=== PATIENT | male | born 1970 | race Caucasian/White ===

== ENCOUNTER 2016-05-29 15:54 | Emergency (ER) | payer SELFPAY ==
[~2016-05-29] VITALS: Ht 175.3 cm; Wt 90.0 kg
[2016-05-29 15:58] VITALS: BP 116/79; PULSE 84; RESP 16; TEMP 97.6; O2SAT 99
--- NOTE | 2016-05-29 16:36 | PD ---
HPI Chief Complaint: Back/ Neck Pain or Injury Time Seen by Provider: 16:36 Travel History International Travel<30 days: No Contact w/Intl Traveler<30days: No Traveled to known affect area: No History of Present Illness HPI 45-year-old male presents to the ED for evaluation of 3 day history of low back pain, radiating to the left buttock and down the left leg to the knee. Patient endorses spasming and shooting quality to the pain. He also endorses weakness of the left leg. He denies numbness or tingling, fever, chills, acute injury. He denies saddle anesthesia or urinary or fecal incontinence. No treatment attempted at home. He endorses chronic limp secondary to previous distant surgery. PFSH Past Medical History Hx Anticoagulant Therapy: No Diabetes: No Diminished Hearing: No Tetanus Vaccination: < 5 Years Influenza Vaccination: Yes Past Surgical History Other Surgery: Yes (BACK) Social History Alcohol Use: Yes (LIQUOR, OCCASIONALLY) Tobacco Use: Yes (1/2 PPD) Substance Use: No Allergies-Medications (Allergen,Severity, Reaction): Coded Allergies: No Known Allergies (Unverified , 05/29/16) Reported Meds & Prescriptions Reported Meds & Active Scripts Active Flexeril (Cyclobenzaprine HCl) 10 Mg Tab 10 Mg PO TID Ibuprofen 800 Mg Tab 800 Mg PO Q8H Review of Systems Except as stated in HPI: all other systems reviewed are Neg Physical Exam Narrative GENERAL: Well-nourished, well-developed white male in no acute distress. SKIN: Focused skin assessment warm/dry. HEAD: Normocephalic. EYES: No scleral icterus. No injection or drainage. NECK: Supple, trachea midline. No JVD or lymphadenopathy. CARDIOVASCULAR: Regular rate and rhythm without murmurs, gallops, or rubs. RESPIRATORY: Breath sounds equal bilaterally. No accessory muscle use. GASTROINTESTINAL: Abdomen soft, non-tender, nondistended. MUSCULOSKELETAL: No cyanosis, or edema. Straight leg raise positive on the left. 5/5 strength of dorsiflexion, plantar flexion, hip and knee flexion bilaterally. BACK: No obvious deformity. No CVA tenderness. Mild midline tenderness as well as tenderness of the paraspinal musculature extending to the left sciatic notch. Data Data Last Documented VS Vital Signs Date Time Temp Pulse Resp B/P Pulse Ox O2 Delivery O2 Flow Rate FiO2 05/29/16 15:58 97.6 84 16 116/79 99 Orders Ketorolac Inj (Toradol Inj) (05/29/16 17:00) Orphenadrine Inj (Norflex Inj) (05/29/16 17:00) MDM Medical Decision Making Medical Screen Exam Complete: Yes Emergency Medical Condition: Yes Differential Diagnosis Low back pain versus sciatica versus radiculopathy versus other Narrative Course 45-year-old male presents to the ED for evaluation of 3 day history of low back pain, radiating to the left buttock and down the left leg to the knee. Patient endorses spasming and shooting quality to the pain. He also endorses weakness of the left leg. He denies numbness or tingling, fever, chills, acute injury. He denies saddle anesthesia or urinary or fecal incontinence. No treatment attempted at home. He endorses chronic limp secondary to previous distant surgery. Vitals reviewed. Physical exam reveals a nontoxic-appearing white male in no acute distress. There is mild midline tenderness in the lumbar area that extends to the left and right sciatic notch. 5/5 strength of dorsiflexion , plantar flexion, knee and hip flexion bilaterally. Signs and symptoms consistent with sciatica. Patient was administered IM Toradol and Norflex. He is provided a short course of high-dose anti-inflammatories and muscle relaxants. He is instructed to take the medication as prescribed, return to normal, gentle activities as tolerated. He was cautioned not to spend too much time in bed as this can work and back pain. We discussed reasons to return to the ED. He indicated understanding of the instructions and is agreeable to the care plan. The patient is stable and discharged home. Diagnosis Primary Impression: Sciatic neuropathy Qualified Code: G57.02 - Sciatic neuropathy, left Additional Impressions: Sciatic notch pain Qualified Code: M54.32 - Sciatic notch pain, left Low back pain Qualified Code: M54.42 - Acute bilateral low back pain with left-sided sciatica Referrals: Neurologist Primary Care Physician Patient Instructions: Acute Low Back Pain (ED), General Instructions, Lower Back Exercises (ED), Sciatica (ED) Additional Instructions: Rest, hydrate. A mixture of rest and. So activity are best for back pain. Resume normal, gentle activities as tolerated. No strenuous physical activities for the next few days 800 milligram ibuprofen 3 times a day to reduce pain and inflammation. Flexeril up to 3 times a day for muscle spasm. Do not drive when taking Flexeril. Applying ice or heat to areas with sore muscles may help to improve your pain. Do not apply ice/ heat for longer than 20 m/h. Gentle massage may also help to improve your symptoms. Follow-up with your primary care provider next week Return to the ED for any urgent or emergent medical condition. Med/Other Pt SpecificInfo: Prescription(s) given Scripts Cyclobenzaprine (Flexeril)10 Mg Tab10 Mg PO TID #12 TAB Ref 0 Prov:Maurice Maher MD 05/29/16 Ibuprofen 800 Mg [id number] Mg PO Q8H #20 TAB Ref 0 Prov:Maurice Maher MD 05/29/16 Disposition: 01 DISCHARGE HOME Condition: Stable [facility] [address] May 29, 2016 16:36
[2016-05-29] MEDS ORDERED: IBUP800T23 PO (16:55)
[2016-05-29] MEDS ORDERED: CYCL1TAB29 PO (16:55)
[2016-05-29] MEDS ORDERED: KETOROLAC TROMETHAMINE 60 MG/2 ML (IM) VIAL IM ONE (17:00)
[2016-05-29] MEDS ORDERED: ORPHENADRINE INJ 60 MG/2 ML AMP IM ONE (17:00)
== END 2016-05-29 17:23 | disposition home or self-care (01) ==
LOC: PHEFT 15:54
DX: G57.02 Lesion of sciatic nerve, left lower limb (principal); M54.32 Sciatica, left side; M54.42 Lumbago with sciatica, left side; F17.210 Nicotine dependence, cigarettes, uncomplicated
CPT/HCPCS: 96372; 99283; J1885; J2360